=== PATIENT | female | born 1970 | race Caucasian/White ===

== ENCOUNTER 2018-11-08 14:08 | Emergency (ER) | payer MEDICAID ==
[2018-11-08] MEDS ORDERED: LORAZEPAM INJ 2 MG/1 ML VIAL ONE (14:20)
[2018-11-08 14:25] LABS: ABSOLUTE MONOCYTES (AUTO) 0.2 10^3/uL (0.1-1.4); BASOPHILS % (AUTO) 0.2 % (0-2); EOSINOPHILS % (AUTO) 0.4 % (0-6); HEMATOCRIT 41.6 % (36.0-47.0); HEMOGLOBIN 13.9 g/dL (12.0-15.5); LYMPHOCYTES % (AUTO) 17.5 % (13-45); MEAN CORPUSCULAR HEMOGLOBIN 28.1 pg (27.0-33.4); MEAN CORPUSCULAR HGB CONC 33.3 g/dL (32.0-36.0); MEAN CORPUSCULAR VOLUME 84 fl (80-97); MONOCYTES % (AUTO) 1.6 % (3-13); PLATELET COUNT 235 10^3/uL (150-450); RED BLOOD COUNT 4.93 10^6/uL (3.72-5.28); RED CELL DISTRIBUTION WIDTH 13.3 % (11.5-14.0); SEGMENTED NEUTROPHILS % (AUTO) 80.3 % (42-78); TOTAL CELLS COUNTED % (AUTO) 100 %; WHITE BLOOD COUNT 11.2 10^3/uL (4.0-10.5)
[2018-11-08 14:31] LABS: INTERNATIONAL RATION (INR) 0.89; PROTHROMBIN TIME 12.5 SEC (11.4-15.4)
--- NOTE | 2018-11-08 14:43 | RADIOLOGY REPORT (SQ) ---
EXAM DESCRIPTION: CT HEAD WITHOUT COMPLETED DATE/TIME: 11/08/2018 2:30 pm REASON FOR STUDY: ams COMPARISON: None. TECHNIQUE: Axial images acquired through the brain without intravenous contrast. Images reviewed wi th bone, brain and subdural windows. Additional sagittal and coronal reconstructions were generated. Images stored on PACS. All CT scanners at this facility use dose modulation, iterative reconstruction, and/or weight based d osing when appropriate to reduce radiation dose to as low as reasonably achievable (ALARA). [facility]: Dose Right [facility]: CareDose [facility]: Dose Right [facility]: Teradose 4D [facility]: Pixc RADIATION DOSE: CT Rad equipment meets quality standard of care and radiation dose reduction techniq ues were employed. CTDIvol: 53.2 mGy. DLP: 991 mGy-cm. mGy. LIMITATIONS: None. FINDINGS: VENTRICLES: Normal size and contour. CEREBRUM: No masses. No hemorrhage. No midline shift. No evidence for acute infarction. Normal gra y/white matter differentiation. No areas of low density in the white matter. CEREBELLUM: No masses. No hemorrhage. No alteration of density. No evidence for acute infarction. EXTRAAXIAL SPACES: No fluid collections. No masses. ORBITS AND GLOBE: No intra- or extraconal masses. Normal contour of globe without masses. CALVARIUM: No fracture. PARANASAL SINUSES: No fluid or mucosal thickening. SOFT TISSUES: No mass or hematoma. OTHER: No other significant finding. IMPRESSION: NORMAL BRAIN CT WITHOUT CONTRAST. EVIDENCE OF ACUTE STROKE: NO. COMMENT: Pertinent positive or negative findings of the imaging study reported as a CRITICAL EXAM danette ROSALES DO at14:35 on 11/08/2018. Category of Critical Exam: Stroke protocol. Quality ID # [id number]: Final reports with documentation of one or more dose reduction techniques (e.g., Au tomated exposure control, adjustment of the mA and/or kV according to patient size, use of iterative reconstruction technique) TECHNICAL DOCUMENTATION: JOB ID: [id number] [employer]- All Rights Reserved Reading location - IP/workstation name: [email or web address]
[2018-11-08 14:46] LABS: ALANINE AMINOTRANSFERASE 22 U/L (9-52); ALBUMIN 5.1 g/dL (3.5-5.0); ALKALINE PHOSPHATASE 61 U/L (38-126); ANION GAP 15 (5-19); ASPARTATE AMINO TRANSFERASE 21 U/L (14-36); BILIRUBIN,DIRECT 0.2 mg/dL (0.0-0.4); BILIRUBIN,TOTAL 0.5 mg/dL (0.2-1.3); BLOOD UREA NITROGEN 14 mg/dL (7-20); CALCIUM 10.2 mg/dL (8.4-10.2); CARBON DIOXIDE 24 mmol/L (22-30); CHLORIDE 102 mmol/L (98-107); CREATINE KINASE 42 U/L (30-135); GLUCOSE 179 mg/dL (75-110); POTASSIUM 4.2 mmol/L (3.6-5.0); SODIUM 140.6 mmol/L (137-145); TOTAL PROTEIN 8.1 g/dL (6.3-8.2)
--- NOTE | 2018-11-08 14:51 | RADIOLOGY REPORT (SQ) ---
EXAM DESCRIPTION: CHEST SINGLE VIEW COMPLETED DATE/TIME: 11/08/2018 2:42 pm REASON FOR STUDY: ams COMPARISON: None. EXAM PARAMETERS: NUMBER OF VIEWS: One view. TECHNIQUE: Single frontal radiographic view of the chest acquired. RADIATION DOSE: NA LIMITATIONS: None. FINDINGS: LUNGS AND PLEURA: No opacities, masses or pneumothorax. No pleural effusion. MEDIASTINUM AND HILAR STRUCTURES: No masses. Contour normal. HEART AND VASCULAR STRUCTURES: Heart normal in size. Normal vasculature. BONES: No acute findings. HARDWARE: None in the chest. OTHER: No other significant finding. IMPRESSION: NO ACUTE RADIOGRAPHIC FINDING IN THE CHEST. TECHNICAL DOCUMENTATION: JOB ID: [id number] [employer]- All Rights Reserved Reading location - IP/workstation name: [email or web address]
[2018-11-08 14:58] LABS: CREATINE KINASE MB < 0.22 ng/mL (<4.55); TROPONIN I < 0.012 ng/mL
--- NOTE | 2018-11-08 15:05 | ER Document Report ---
ED General - General Stated Complaint: POSSIBLE SEIZURE Time Seen by Provider: 11/08/18 14:18 Mode of Arrival: Wheelchair Information source: Patient, Relative, [facility] Records Notes: 48-year-old female with a history of hypertension, chronic neck and back pain presents with altered mental status, upper extremity spasm. and friend are at the bedside who states that just prior to arrival patient was staying on the couch when she suddenly had spasms of the upper extremities bilaterally. Patient has had prior similar symptoms. She recently moved here from [place] and has not had any of her chronic pain medication which is Percocet for 2 weeks. She does report having a Nubain injection 5 days ago. She has no seizure history. Patient takes propanolol for her elevated blood pressure. She denies any pain upon my exam. reports recent upper respiratory infection which was treated with azithromycin which patient has 1 more day left. - HPI Onset: Just prior to arrival Onset/Duration: Sudden Quality of pain: Other - Spasm Severity: Moderate Associated symptoms: Body/muscle aches, Nonproductive cough. denies: Diarrhea, Fever, Headache, Nausea, Vomiting, Shortness of breath, Slow to respond Exacerbated by: Denies, Standing Similar symptoms previously: Yes Recently seen / treated by doctor: Yes - Related Data Allergies/Adverse Reactions: ketorolac [From Toradol] Allergy (Verified 11/08/18 15:25) Penicillins Allergy (Verified 11/08/18 15:25) Past Medical History - General Information source: Patient, Relative, [facility] Records - Social History Smoking Status: Never Smoker Frequency of alcohol use: None Drug Abuse: None Lives with: Spouse/Significant other Family History: Reviewed & Not Pertinent Patient has suicidal ideation: No Patient has homicidal ideation: No - Past Medical History Cardiac Medical History: Reports: Hx Hypertension Musculoskeletal Medical History: Reports Hx Muscle Spasm Review of Systems - Review of Systems Notes: REVIEW OF SYSTEMS: CONSTITUTIONAL : Denies fever, chills, or sweats. Denies weight loss, recent hospitalizations. EENT: Denies visual changes, eye pain. Denies sore throat, oral lesions, diffi culty swallowing. CARDIOVASCULAR: Denies chest pain. Denies palpitations. Denies lower extremity edema. RESPIRATORY: Denies cough. Denies shortness of breath, wheezing. GASTROINTESTINAL: Denies abdominal pain or distention. Denies nausea, vomiting, or diarrhea. Denies blood in vomitus, stools, or per rectum. Denies black, tarry stools. Denies constipation. GENITOURINARY: Denies difficulty urinating, painful urination, frequency, blood in urine, or vaginal discharge. MUSCULOSKELETAL: Denies joint pain or swelling. SKIN: Denies rash, lesions or sores. HEMATOLOGIC : Denies easy bruising or bleeding. LYMPHATIC: Denies swollen glands. NEUROLOGICAL: Denies confusion or altered mental status. Denies loss of consciousness. Denies dizziness or lightheadedness. Denies headache. Denies weakness or paralysis. Denies problems difficulty with ambulation, slurred speech. Denies sensory loss, numbness, or tingling. Denies seizures. PSYCHIATRIC: Denies anxiety or stress. Denies depression, suicidal ideation, or homicidal ideation. Denies visual or auditory hallucinations. 99 Physical Exam - Vital signs Vitals: Resp Pulse Ox 20 95 11/08/18 14:10 11/08/18 14:10 - Notes Notes: PHYSICAL EXAMINATION: GENERAL: Awake, alert, tearful. HEAD: Atraumatic, normocephalic. EYES: Pupils equal round and reactive to light, extraocular movements intact, conjunctiva are normal. ENT: Nares patent, oropharynx clear without exudates. Moist mucous membranes. NECK: Normal range of motion, supple without lymphadenopathy LUNGS: Breath sounds clear to auscultation bilaterally and equal. No wheezes rales or rhonchi. HEART: Regular rate and rhythm without murmurs ABDOMEN: Soft, nontender, nondistended abdomen. No guarding, no rebound. No masses appreciated. Female : deferred Musculoskeletal: Normal range of motion, no pitting or edema. No cyanosis. NEUROLOGICAL: Cranial nerves grossly intact. Normal speech, normal gait. Normal sensory, motor exams. NIH of 1 for left-sided facial droop PSYCH: Tearful SKIN: Warm, Dry, normal turgor, no rashes or lesions noted. Course - Re-evaluation Re-evalutation: Laboratory 11/08/18 11/08/18 11/08/18 14:10 14:10 14:10 WBC 11.2 H RBC 4.93 Hgb 13.9 Hct 41.6 MCV 84 MCH 28.1 MCHC 33.3 RDW 13.3 Plt Count 235 Seg Neutrophils % 80.3 H Lymphocytes % 17.5 Monocytes % 1.6 L Eosinophils % 0.4 Basophils % 0.2 Absolute Neutrophils 9.0 H Absolute Lymphocytes 2.0 Absolute Monocytes 0.2 Absolute Eosinophils 0.0 Absolute Basophils 0.0 PT 12.5 INR 0.89 APTT 33.0 Sodium 140.6 Potassium 4.2 Chloride 102 Carbon Dioxide 24 Anion Gap 15 BUN 14 Creatinine 0.60 Est GFR ( Amer) > 60 Est GFR (Non-Af Amer) > 60 Glucose 179 H POC Glucose Calcium 10.2 Total Bilirubin 0.5 Direct Bilirubin 0.2 Neonat Total Bilirubin Not Reportable Neonat Direct Bilirubin Not Reportable Neonat Indirect Bili Not Reportable AST 21 ALT 22 Alkaline Phosphatase 61 Creatine Kinase 42 CK-MB (CK-2) Troponin I Total Protein 8.1 Albumin 5.1 H Urine Opiates Screen Urine Methadone Screen Ur Barbiturates Screen Ur Phencyclidine Scrn Ur Amphetamines Screen U Benzodiazepines Scrn Urine Cocaine Screen U Marijuana (THC) Screen 11/08/18 11/08/18 11/08/18 14:10 14:49 15:28 WBC RBC Hgb Hct MCV MCH MCHC RDW Plt Count Seg Neutrophils % Lymphocytes % Monocytes % Eosinophils % Basophils % Absolute Neutrophils Absolute Lymphocytes Absolute Monocytes Absolute Eosinophils Absolute Basophils PT INR APTT Sodium Potassium Chloride Carbon Dioxide Anion Gap BUN Creatinine Est GFR ( Amer) Est GFR (Non-Af Amer) Glucose POC Glucose 158 H Calcium Total Bilirubin Direct Bilirubin Neonat Total Bilirubin Neonat Direct Bilirubin Neonat Indirect Bili AST ALT Alkaline Phosphatase Creatine Kinase CK-MB (CK-2) < 0.22 Troponin I < 0.012 Total Protein Albumin Urine Opiates Screen NEGATIVE Urine Methadone Screen NEGATIVE Ur Barbiturates Screen NEGATIVE Ur Phencyclidine Scrn NEGATIVE Ur Amphetamines Screen UNCONFIRMED POSITIVE U Benzodiazepines Scrn UNCONFIRMED POSITIVE Urine Cocaine Screen NEGATIVE U Marijuana (THC) Screen UNCONFIRMED POSITIVE Chest X-Ray 11/08/18 14:19 IMPRESSION: NO ACUTE RADIOGRAPHIC FINDING IN THE CHEST. Head CT 11/08/18 14:19 IMPRESSION: NORMAL BRAIN CT WITHOUT CONTRAST. EVIDENCE OF ACUTE STROKE: NO. Head MRI 11/08/18 15:28 IMPRESSION: NORMAL MRI OF THE BRAIN WITHOUT INTRAVENOUS GADOLINIUM CONTRAST. EVIDENCE OF ACUTE STROKE: NO. Lumbar Spine MRI 11/08/18 15:28 IMPRESSION: Posterior decompression L3-4 L4-5. Extensive hardware including right-sided disc prostheses. At L3-4 there is minimal right lateral disc protrusion adjacent to the prosthesis with mild flattening of the exiting right L3 root. Temp Pulse Resp BP Pulse Ox 98.2 F 15 133/94 H 96 11/08/18 18:01 11/08/18 19:01 11/08/18 19:00 11/08/18 19:01 48-year-old female with a history of hypertension, chronic neck and back pain presents with altered mental status, upper extremity spasm. and friend are at the bedside who states that just prior to arrival patient was staying on the couch when she suddenly had spasms of the upper extremities bilaterally. Patient has had prior similar symptoms. She recently moved here from [place] and has not had any of her chronic pain medication which is Percocet for 2 weeks. She does report having a Nubain injection 5 days ago. Vital signs reviewed and within normal limits upon arrival. Patient was placed on bus driver/monitor and EKG was obtained which showed the patient to be in normal sinus rhythm. NIH stroke scale performed and 1 for left-sided facial droop which the patient's reports to be chronic. Significant laboratory findings include an elevated glucose without evidence of DKA. Patient's urine drug screen positive for benzodiazepines, amphetamines, marijuana. MRI of the brain showed no evidence of stroke. MRI of the lumbar spine showed no evidence of cauda equina, epidural abscess. Patient does have an upcoming neuro surgery appointment. Patient was evaluated and treated as appropriate for the patient's presenting symptoms and complaint, with consideration of any critical or life threatening conditions that may be associated with their obtained history and exam as noted above. All results were discussed with patient and her who is at the bedside. Patient provided the opportunity to ask questions, and express concerns. Patient was educated on treatments based on their presumed diagnosis as noted above. At this time we will discharge the patient with return precautions and follow-up recommendations. Verbal discharge instructions given a the bedside. Medication warnings reviewed. Patient is in agreement with this plan and has verbalized understanding of return precautions. After careful consideration I feel that that patient can be safely discharged from the emergency department, they were advised to followup with a primary care physician in 2-3 days. Dictation on this chart was performed using voice recognition software and may result in unintended grammatical, spelling, syntax or errors. 11/08/18 15:28 Patient reevaluated and states that her spasms have improved after receiving 1 mg of Ativan. She states that she feels like she standing in water and is now complaining of a headache. 11/08/18 22:08 11/08/18 22:09 11/08/18 22:09 - Vital Signs Vital signs: Temp Pulse Resp BP Pulse Ox 98.2 F 15 133/94 H 96 11/08/18 18:01 11/08/18 19:01 11/08/18 19:00 11/08/18 19:01 - Laboratory Result Diagrams: 11/08/18 14:10 11/08/18 14:10 Laboratory results interpreted by me: 11/08/18 11/08/18 11/08/18 14:10 14:10 14:49 WBC 11.2 H Seg Neutrophils % 80.3 H Monocytes % 1.6 L Absolute Neutrophils 9.0 H Glucose 179 H POC Glucose 158 H Albumin 5.1 H - Diagnostic Test Radiology reviewed: Image reviewed, Reports reviewed - EKG Interpretation by Me EKG shows normal: Sinus rhythm Rate: Normal Rhythm: NSR When compared to previous EKG there are: Previous EKG unavailable Critical Care Note - Critical Care Note Total time excluding time spent on procedures (mins): 35 - Minutes of critical care time spent in direct contact evaluating and reevaluating the patient, treating symptoms, reviewing labs and studies and speaking with family and consultants excluding any procedures Discharge - Discharge Clinical Impression: Muscle spasm, Elevated blood pressure reading, Hyperglycemia, Facial droop Altered mental status Qualifiers: Altered mental status type: unspecified Qualified Code(s): R41.82 - Altered mental status, unspecified Condition: Good Disposition: HOME, SELF-CARE Instructions: Altered Mental Status ([facility]), Chronic Back Pain ([facility]), Myalagia (Muscle Pain) ([facility]), Hyperglycemia ([facility]) Additional Instructions: Your MRI of your head and back did not show anything emergent or requiring surgery. Please follow-up with neurosurgery as already scheduled. Forms: Elevated Blood Pressure
[2018-11-08] MEDS ORDERED: METOCLOPRAMIDE HCL INJ/PF 10 MG/2 ML SDV IV ONE (15:28)
[2018-11-08] MEDS ORDERED: DIPHENHYDRAMINE HCL 50 MG/ML VIAL IV ONE (15:28)
[2018-11-08 15:55] LABS: URINE AMPHETAMINES SCREEN UNCONFIRMED POSITIVE; URINE BARBITURATES SCREEN NEGATIVE; URINE BENZODIAZEPINES SCREEN UNCONFIRMED POSITIVE; URINE COCAINE SCREEN NEGATIVE; URINE MARIJUANA (THC) SCREEN UNCONFIRMED POSITIVE; URINE METHADONE SCREEN NEGATIVE; URINE PHENCYCLIDINE SCREEN NEGATIVE
[2018-11-08] MEDS ORDERED: LORAZEPAM INJ 2 MG/1 ML VIAL IV ONE (15:57)
--- NOTE | 2018-11-08 17:34 | RADIOLOGY REPORT (SQ) ---
EXAM DESCRIPTION: MRI HEAD WITHOUT COMPLETED DATE/TIME: 11/08/2018 5:23 pm REASON FOR STUDY: weakness COMPARISON: CT scan same date TECHNIQUE: Multiplanar imaging includes non-contrasted T1, T2, FLAIR, and diffusion with ADC map seq uences. Heme avid sequence. Images stored on PACS. LIMITATIONS: Motion artifact. FINDINGS: ANATOMY: No anomalies. Normal vascular flow voids. Pituitary fossa normal. CSF SPACES: Normal in size and contour. No hemorrhage. CEREBRUM: Sulci and gyri normal in size and contour. Normal white matter signal on FLAIR imaging. No evidence of hemorrhage, mass, or extraaxial fluid collection. POSTERIOR FOSSA: No signal alteration. No hemorrhage. No edema, masses or mass effect. Internal roque tory canals, cerebello-pontine angles, mastoids normal. DIFFUSION IMAGING: Negative for acute or sub-acute infarction. ORBITS: No masses. Globes normal. PARANASAL SINUSES: No fluid levels. Mucosa normal. OTHER: No other significant finding. IMPRESSION: NORMAL MRI OF THE BRAIN WITHOUT INTRAVENOUS GADOLINIUM CONTRAST. EVIDENCE OF ACUTE STROKE: NO. TECHNICAL DOCUMENTATION: JOB ID: [id number] [employer]- All Rights Reserved Reading location - IP/workstation name: [email or web address]
--- NOTE | 2018-11-08 17:41 | RADIOLOGY REPORT (SQ) ---
EXAM DESCRIPTION: MRI LUMBAR SPINE COMBO COMPLETED DATE/TIME: 11/08/2018 5:23 pm REASON FOR STUDY: weakness COMPARISON: None. TECHNIQUE: Sagittal and Axial imaging includes T1, T1 post gadolinium, T2, STIR and gradient echo se quences. Coronal T2/HASTE imaging. CONTRAST TYPE AND DOSE: 15 mL Dotarem. RENAL FUNCTION: GFR > 60. LIMITATIONS: Berrios artifact from hardware. FINDINGS: VISUALIZED UPPER ABDOMEN: Limited evaluation. No acute or suspicious findings suggested. SEGMENTATION: No transitional anatomy. The lowest well-developed disc space is labeled L5-S1. ALIGNMENT: Anatomic. VERTEBRAE: Intact. No fractures. BONE MARROW: Reactive endplate changes L1-2. DISC SIGNAL: Loss of height at L1-2. POSTERIOR ELEMENTS: Generally intact. No pars defect evident. HARDWARE: Pedicle screws L3-4 5 on the right L3 and L5 on the left. Kevne disc prostheses L3-4 and L4 -5. CORD AND CONUS: Normal in size and signal intensity. Conus at the appropriate level. SOFT TISSUES: No aortic aneurysm seen. No bulky retroperitoneal adenopathy or mass. No paraspinal mas s or fluid. L1-L2: No significant spinal stenosis or exit foraminal stenosis. L2-L3: No significant spinal stenosis or exit foraminal stenosis. L3-L4: Right-sided eccentric disc prosthesis. There is minimal right lateral disc bulge with mild fl attening of the exiting right L3 root. Posterior decompression. L4-L5: No significant spinal stenosis or exit foraminal stenosis. Right side eccentric disc prosthes is. Posterior decompression. L5-S1: No significant spinal stenosis or exit foraminal stenosis. LOWER THORACIC: Incompletely imaged. No stenosis seen. SACRUM: Visualized upper sacrum intact. ENHANCEMENT: No abnormal enhancement. OTHER: No other significant findings. IMPRESSION: Posterior decompression L3-4 L4-5. Extensive hardware including right-sided disc prosth eses. At L3-4 there is minimal right lateral disc protrusion adjacent to the prosthesis with mild fl attening of the exiting right L3 root. TECHNICAL DOCUMENTATION: JOB ID: [id number] [employer]- All Rights Reserved Reading location - IP/workstation name: [email or web address]
--- NOTE | 2018-11-08 18:29 | EKG REPORT ---
SEVERITY:- ABNORMAL ECG - SINUS RHYTHM NONSPECIFIC T ABNORMALITIES, ANTERIOR LEADS : Confirmed by: Miguel Howard MD 08-Nov-2018 18:27:59
[2018-11-08 19:17] VITALS: BP 133/94
== END 2018-11-08 19:17 | disposition home or self-care (01) ==
LOC: ER 14:08
DX: R41.82 Altered mental status, unspecified (principal); I10 Essential (primary) hypertension; M62.838 Other muscle spasm; R29.810 Facial weakness; M54.2 Cervicalgia; M54.9 Dorsalgia, unspecified; G89.29 Other chronic pain; R05 Cough
CPT/HCPCS: 93005; 96376; 99291; 96374; 96375; 36415; 82553; 82962; 82550; 85025; 85610; 85730; 80053; 84484; 80307; 72158; 70551; 71045; 70450; 93010; J1200; J2765; J2060